=== PATIENT | female | born 1980 | race Caucasian/White ===

== ENCOUNTER 2019-09-02 13:33 | Emergency (ER) | payer OTHER ==
[~2019-09-02] VITALS: Ht 160 cm; Wt 54.4 kg
[2019-09-02] MEDS ORDERED: ADDERALL XR 3030 MG PO (13:41)
[2019-09-02] MEDS ORDERED: ADDERALL 20 MG20 MG PO (13:41)
[2019-09-02] MEDS ORDERED: DESVENLAFAXINE50 M2 PO (13:42)
[2019-09-02 14:09] LABS: INFLUENZA A ANTIGEN Negative (Negative); INFLUENZA B ANTIGEN Negative (Negative)
[2019-09-02] MEDS ORDERED: KEFLEX500 M1 PO (14:45)
[2019-09-02 14:55] VITALS: BP 112/73
== END 2019-09-02 14:56 | disposition home or self-care (01) ==
LOC: M.ERS 13:33
PROVIDERS: Nurse Practitioner Family
DX: J06.9 Acute upper respiratory infection, unspecified (principal); Z88.0 Allergy status to penicillin

== ENCOUNTER → 2021-01-07 | Outpatient (CLI) | payer OTHER ==
[~2021-01-07] MED LIST: ADDERALL 10 MG10 MG PO; ADDERALL 20 MG20 MG PO; ADDERALL XR 3030 MG PO; BACLOFEN 10MG T10 MG PO; CEPHALEXIN500 MG PO; CHANTIX1 MG PO; DESVENLAFAXINE50 M2 PO; FOLIC ACID0.4 MG PO; IRON325 M1 PO; KEFLEX500 M1 PO; LUNESTA3 MG PO; NAPROSYN500 M1 PO; WELLBUTRIN SR100 MG PO; ZOFRAN ODT4 MG PO
[2021-01-07 12:52] LABS: ABSOLUTE EOSINOPHILS 0.1 thou/uL (0.0-0.7); ABSOLUTE MONOCYTES 0.5 thou/uL (0.0-1.2); ABSOLUTE NEUTROPHILS 4.6 thou/uL (1.6-8.1); BASOPHILS 0.7 %; EOSINOPHILS 1.2 %; HEMATOCRIT 27.7 % (37.0-47.0); HEMOGLOBIN 9.2 gm/dL (12.0-15.0); LYMPHOCYTES 27.3 %; MCH 25.7 pg (26.0-34.0); MCHC 33.2 g/dL (28.0-37.0); MCV 77.4 fL (80.0-100.0); MONOCYTES 7.3 %; MPV 7.3 fl. (7.2-11.1); NUCLEATED RBCS 0 /100WBC; PLATELET COUNT* 305 thou/uL (150-400); POLYS 63.5 %; RBC 3.57 mil/uL (4.20-5.00); RDW-CV 18.6 % (10.5-14.5); WBC 7.3 thou/uL (4.0-11.0)
[2021-01-07 13:35] LABS: % SATURATION 15 % (20-39); IRON 46 ug/dL (50-175)
== END ==
LOC: M.LAB 12:29
PROVIDERS: ATTEND Nurse Practitioner Family
DX: D50.9 Iron deficiency anemia, unspecified (principal); R20.0 Anesthesia of skin; R20.2 Paresthesia of skin

== ENCOUNTER → 2021-01-27 | Outpatient (CLI) | payer OTHER | LOC: M.LAB 12:42 | PROVIDERS: ATTEND Internal Medicine Gastroenterology | DX: Z01.812 Encounter for preprocedural laboratory examination (principal); Z20.822 Contact with and (suspected) exposure to COVID-19 ==